=== PATIENT | female | born 1965 | race Caucasian/White ===

== ENCOUNTER → 2016-04-19 | Outpatient (CLI) | payer OTHER ==
[~2016-04-19] MED LIST: TEMA30CA PO; THYR60TA PO; VALS320T15 PO
[2016-04-19 13:32] LABS: Basophils # (auto) 0 uL; Basophils % (auto) 0.4 % (0.0-2.0); Eosinophils # (auto) 0.1 uL; Eosinophils % (auto) 2.2 % (0.0-7.0); Hemoglobin 13.9 g/dL (12.2-16.2); Lymphocytes # (auto) 1.7 uL; Lymphocytes % (auto) 25.4 % (10.0-50.0); Mean Corpuscular Hgb Conc. 32.3 g/dL (32.0-36.0); Mean Corpuscular Volume 93.1 fL (80.0-100.0); Mean Platelet Volume 8.9 fL (7.4-10.4); Monocytes # (auto) 0.6 uL; Monocytes % (auto) 8.7 % (0.0-12.0); Neutrophils # (auto) 4.2 uL; Neutrophils % (auto) 63.3 % (37.0-80.0); Platelet Count (auto) 260 10^3/uL (140-450); Red Cell Distribution Width 13.6 % (11.6-16.0); White Blood Cell 6.6 10^3/uL (4.4-10.8)
[2016-04-19 13:41] LABS: INR 1.1 (0.9-1.15); Partial Thromboplastin Time 29.1 sec (22.64-33.71); Prothrombin Time 11.3 sec (9.37-12.3)
[2016-04-19 14:16] LABS: Albumin 3.8 g/dL (3.4-5.0); BUN/Creatinine Ratio 25.5; Bilirubin, Total 0.2 mg/dL (0.2-1.0); Calcium 9.5 mg/dL (8.5-10.1); Potassium 4.2 mmol/L (3.5-5.1); Total Protein 7.9 g/dL (6.4-8.2)
[2016-04-19 14:30] LABS: Urine Bilirubin Negative (Negative); Urine Blood TRACE /uL (Negative); Urine Color Yellow (Yellow); Urine Glucose Normal (Normal); Urine Ketone Negative (Negative); Urine Nitrite Negative (Negative); Urine Urobilinogen Normal (Negative)
== END | disposition home or self-care (01) ==
LOC: LAB 13:12
PROVIDERS: ATTEND Obstetrics & Gynecology
DX: Z01.812 Encounter for preprocedural laboratory examination (principal)
CPT/HCPCS: 36415; 80053; 81003; 84702; 85025; 85610; 85730

== ENCOUNTER 2016-04-22 07:45 | Day surgery (SDC) | payer OTHER ==
[~2016-04-22] VITALS: Ht 162.6 cm; Wt 77.1 kg
[2016-04-22] MEDS ORDERED: ceFAZolin 1GM VL ONE (07:53)
[2016-04-22] MEDS ORDERED: CONJ ESTROGENS 0.625MG/GM VAG CRM 30GM PV ONE (07:53)
[2016-04-22] MEDS ORDERED: METHYLENE BLUE 1% 1 ML VIAL IV ONE (07:53)
[2016-04-22] MEDS ORDERED: GELATIN 1 SPONGE SIZE 100 TOP ONE (07:53)
[2016-04-22] MEDS ORDERED: LIDOCAINE 2% JELLY 11ml (GLYDO) ONE (07:53)
[2016-04-22] MEDS ORDERED: VASOPRESSIN 20 UNIT/ML ONE (07:54)
[2016-04-22] MEDS ORDERED: ceFAZolin 1GM/50ML D5W 50 ML IV ONE (08:22)
[2016-04-22] MEDS ORDERED: fentaNYL CITRATE 100 MCG/2 ML VL ONE (08:30)
[2016-04-22] MEDS ORDERED: MEPERIDINE HCL (50 MG/ML) 1 ML VIAL ONE (08:30)
[2016-04-22] MEDS ORDERED: MIDAZOLAM HCL 1MG/1ML-2 ML VIAL ONE (08:30)
[2016-04-22] MEDS ORDERED: LIDOCAINE W/ EPINEPHRINE 2% INJ 20ML VIAL ONE (08:51)
[2016-04-22] MEDS ORDERED: LIDOCAINE W/ EPINEPHRINE 1% 20ML VIAL ONE (08:51)
[2016-04-22] MEDS ORDERED: LIDOCAINE 1% HCL (LOCAL ANESTH.) INJ 20ML MDV ONE (08:51)
[2016-04-22] MEDS ORDERED: LIDOCAINE 2%HCL (LOCAL ANESTH.) INJ 20ML MDV ONE (08:51)
[2016-04-22] MEDS ORDERED: DEXAMETHASONE SOD PHOS 10MG/1ML VIAL INJ ONE (09:02)
[2016-04-22] MEDS ORDERED: NEOSTIGMINE 1 MG/ML INJ (10mg/10ML VIAL) ONE (09:06)
[2016-04-22] MEDS ORDERED: PROPOFOL 10 MG/ML 20 ML IV ONE (09:06)
[2016-04-22] MEDS ORDERED: KETOROLAC TROMETH 30 MG/ML 1ML VIAL ONE (09:08)
[2016-04-22] MEDS ORDERED: GLYCOPYRROLATE 0.2 MG/ML 1ML VIAL ONE (09:08)
[2016-04-22] MEDS ORDERED: MIDAZOLAM HCL 1MG/1ML-2 ML VIAL IV PRN (09:15)
[2016-04-22] MEDS ORDERED: ePHEDrine SULFATE 50 MG/ML AMP IV PRN (09:15)
[2016-04-22] MEDS ORDERED: MORPHINE SULF INJ 2 MG/ML SYRINGE 1ML IV PRN (09:15)
[2016-04-22] MEDS ORDERED: KETOROLAC TROMETH 30 MG/ML 1ML VIAL IV ONE (09:15)
[2016-04-22] MEDS ORDERED: LABETALOL HCL 5 MG/ML 4ML SYRINGE IV PRN (09:15)
[2016-04-22] MEDS ORDERED: ONDANSETRON HCL 4 MG/2 ML VIAL IV ONE (09:15)
[2016-04-22] MEDS: HYDROmorphone HCL 2 MG/ML VL IV PRN ×4 (09:44→10:17)
[2016-04-22 10:59] VITALS: BP 100/58
== END 2016-04-22 11:07 | disposition home or self-care (01) ==
LOC: SUR 07:45
PROVIDERS: ATTEND Obstetrics & Gynecology
DX: N95.2 Postmenopausal atrophic vaginitis (principal); N81.10 Cystocele, unspecified; E03.9 Hypothyroidism, unspecified; I10 Essential (primary) hypertension; Z90.710 Acquired absence of both cervix and uterus
CPT/HCPCS: 57106; 57240; 57288; 88302; C1771; J0690; J1100; J1170; J1885; J2175; J2250; J2704; J3010; J2001

== ENCOUNTER 2016-05-02 21:15 | Emergency (ER) | payer OTHER ==
[~2016-05-02] VITALS: Ht 162.6 cm; Wt 77.1 kg
[2016-05-02 22:11] LABS: Urine Bilirubin Negative (Negative); Urine Blood 1+ /uL (Negative); Urine Color Colorless (Yellow); Urine Glucose Normal (Normal); Urine Ketone Negative (Negative); Urine Nitrite Negative (Negative); Urine RBC 2 /hpf (0 - 4); Urine Squamous Epithelial Cell FEW /hpf (<5); Urine Urobilinogen Normal (Negative); Urine pH 5.5 (5.0-8.0)
[2016-05-02 22:31] LABS: Basophils # (auto) 0.1 uL; Basophils % (auto) 1.2 % (0.0-2.0); Eosinophils # (auto) 0.1 uL; Hematocrit 39.9 % (36.0-46.0); Hemoglobin 13.4 g/dL (12.2-16.2); Lymphocytes # (auto) 1.8 uL; Lymphocytes % (auto) 31.8 % (10.0-50.0); Mean Corpuscular Hemoglobin 30.8 pg (28.0-32.0); Mean Corpuscular Hgb Conc. 33.7 g/dL (32.0-36.0); Mean Corpuscular Volume 91.3 fL (80.0-100.0); Monocytes # (auto) 0.6 uL; Monocytes % (auto) 9.9 % (0.0-12.0); Neutrophils # (auto) 3.2 uL; Neutrophils % (auto) 55.1 % (37.0-80.0); Platelet Count (auto) 300 10^3/uL (140-450); Red Cell Distribution Width 13.6 % (11.6-16.0); White Blood Cell 5.8 10^3/uL (4.4-10.8)
[2016-05-02 22:56] LABS: Albumin 3.4 g/dL (3.4-5.0); Bilirubin, Total 0.1 mg/dL (0.2-1.0); Calcium 8.5 mg/dL (8.5-10.1); Potassium 3.6 mmol/L (3.5-5.1); Total Protein 7.5 g/dL (6.4-8.2)
[2016-05-03 00:05] VITALS: BP 113/65
== END 2016-05-03 00:23 | disposition home or self-care (01) ==
LOC: EDBD 21:15 → ER 21:20
DX: R33.9 Retention of urine, unspecified (principal); Z79.899 Other long term (current) drug therapy
CPT/HCPCS: 36415; 51702; 80053; 81001; 85025

== ENCOUNTER 2022-06-24 09:42 | Emergency (ER) | payer OTHER ==
[~2022-06-24] VITALS: Ht 162.6 cm; Wt 73.2 kg
[2022-06-24 10:47] LABS: Basophils # (auto) 0 10 ^3/uL (0-0.2); Basophils % (auto) 0.7 % (0.0-2.0); Eosinophils # (auto) 0.1 10 ^3/uL (0-0.8); Eosinophils % (auto) 2.2 % (0.0-7.0); Lymphocytes # (auto) 2.6 10 ^3/uL (0.4-5.4); Lymphocytes % (auto) 43.1 % (10.0-50.0); Mean Corpuscular Hemoglobin 30.8 pg (28.0-32.0); Mean Corpuscular Hgb Conc. 33.4 g/dL (32.0-36.0); Mean Corpuscular Volume 92.4 fL (80.0-100.0); Monocytes # (auto) 0.6 10 ^3/uL (0-1.3); Monocytes % (auto) 9.7 % (0.0-12.0); Neutrophils # (auto) 2.7 10 ^3/uL (1.6-8.6); Neutrophils % (auto) 44.3 % (37.0-80.0); Nucleated Red Blood Cells % 0.4 %; Red Blood Cells 4.54 10^6/uL (4.0-5.20); Red Cell Distribution Width 13.8 % (11.8-14.3)
[2022-06-24 11:11] LABS: Albumin 3.4 g/dL (3.4-5.0); Calcium 8.7 mg/dL (8.5-10.1); Potassium 3.9 mmol/L (3.5-5.1)
[2022-06-24 11:16] LABS: Urine Bacteria FEW /hpf (None Seen); Urine Blood 1+ /uL (Negative); Urine Specific Gravity 1.011 (1.001-1.035); Urine WBC 1 /hpf (0 - 5)
[2022-06-24 11:16] LABS: BUN/Creatinine Ratio 35.7 (10.0-20.0); Bilirubin, Total 0.4 mg/dL (0.2-1.0)
[2022-06-24 14:35] VITALS: BP 118/63
== END 2022-06-24 14:38 | disposition home or self-care (01) ==
LOC: ER 09:42
DX: R07.89 Other chest pain (principal); I10 Essential (primary) hypertension; R06.02 Shortness of breath; R51.9 Headache, unspecified
CPT/HCPCS: 36415; 70450; 71045; 80053; 81001; 83880; 84484; 85025; 93005

== ENCOUNTER 2023-07-15 18:54 | Emergency (ER) | payer OTHER ==
[~2023-07-15] VITALS: Ht 162.6 cm; Wt 70.0 kg
[~2023-07-15 18:54] MED LIST changes: +VALS320T PO; -VALS320T15 PO
[2023-07-15 19:24] VITALS: BP 105/70; PULSE 67; RESP 20; TEMP 98; O2SAT 97
[2023-07-15 19:49] LABS: Basophils # (auto) 0 10 ^3/uL (0-0.2); Basophils % (auto) 0.6 % (0.0-2.0); Eosinophils # (auto) 0.1 10 ^3/uL (0-0.8); Eosinophils % (auto) 1.8 % (0.0-7.0); Hematocrit 41.6 % (36.0-46.0); Lymphocytes # (auto) 1.8 10 ^3/uL (0.4-5.4); Lymphocytes % (auto) 26.6 % (10.0-50.0); Mean Corpuscular Hemoglobin 31.2 pg (28.0-32.0); Mean Corpuscular Hgb Conc. 33.7 g/dL (32.0-36.0); Mean Corpuscular Volume 92.7 fL (80.0-100.0); Monocytes # (auto) 0.5 10 ^3/uL (0-1.3); Monocytes % (auto) 7.5 % (0.0-12.0); Neutrophils # (auto) 4.3 10 ^3/uL (1.6-8.6); Neutrophils % (auto) 63.5 % (37.0-80.0); Red Blood Cells 4.49 10^6/uL (4.0-5.20); Red Cell Distribution Width 13.6 % (11.8-14.3); White Blood Cell 6.7 10^3/uL (4.4-10.8)
[2023-07-15 19:57] LABS: Chloride 108 mmol/L (98-107); Potassium 3.1 mmol/L (3.5-5.1); Sodium 139 mmol/L (136-145)
[2023-07-15 19:58] LABS: Anion Gap 7 (5-15); Calcium 10.1 mg/dL (8.5-10.1); Carbon Dioxide 24 mmol/L (20-30)
[2023-07-15 20:03] LABS: BUN/Creatinine Ratio 20.3 (10.0-20.0); Blood Urea Nitrogen 14 mg/dL (9-23); Glucose 153 mg/dL (74-106)
[2023-07-15 20:26] VITALS: PULSE 64
== END 2023-07-15 21:28 | disposition home or self-care (01) ==
LOC: EDBD 18:54 → EDSEX 18:54 → ER 18:54
DX: R55 Syncope and collapse (principal); R42 Dizziness and giddiness; I10 Essential (primary) hypertension; Z79.899 Other long term (current) drug therapy
CPT/HCPCS: 36415; 80048; 84484; 85025; 93005

== ENCOUNTER 2024-03-20 06:39 | Day surgery (SDC) | payer OTHER ==
[2024-03-16 11:22] LABS: Urine Bacteria None Seen /hpf (None Seen)
[2024-03-16 11:51] LABS: Basophils # (auto) 0 10 ^3/uL (0-0.2); Eosinophils # (auto) 0.2 10 ^3/uL (0-0.8); Eosinophils % (auto) 3.3 % (0.0-7.0); Hematocrit 43.6 % (36.0-46.0); Hemoglobin 14.7 g/dL (12.2-16.2); Lymphocytes # (auto) 1.8 10 ^3/uL (0.4-5.4); Lymphocytes % (auto) 39.9 % (10.0-50.0); Mean Corpuscular Hemoglobin 31.5 pg (28.0-32.0); Mean Corpuscular Hgb Conc. 33.8 g/dL (32.0-36.0); Mean Corpuscular Volume 93.1 fL (80.0-100.0); Monocytes # (auto) 0.5 10 ^3/uL (0-1.3); Monocytes % (auto) 11.1 % (0.0-12.0); Neutrophils # (auto) 2.1 10 ^3/uL (1.6-8.6); Neutrophils % (auto) 44.7 % (37.0-80.0); Platelet Count (auto) 213 10^3/uL (140-450); Red Blood Cells 4.68 10^6/uL (4.0-5.20); Red Cell Distribution Width 14.1 % (11.8-14.3); White Blood Cell 4.6 10^3/uL (4.4-10.8)
[2024-03-16 12:09] LABS: Urine Blood 1+ /uL (Negative); Urine Clarity Clear (Clear); Urine Color Colorless (Yellow); Urine Protein, UAD Negative (Negative); Urine Specific Gravity 1.007 (1.001-1.035); Urine Squamous Epithelial Cell None Seen /hpf (<5); Urine Urobilinogen Normal (Negative); Urine WBC 1 /hpf (0 - 5); Urine pH 6.5 (5.0-9.0)
[2024-03-16 12:10] LABS: INR 1.11 (0.9-1.15); Partial Thromboplastin Time 30.7 SEC (24.5-34.5); Prothrombin Time 11.7 sec (9.3-11.8)
[2024-03-16 12:16] LABS: Alanine Aminotransferase 16 U/L (7-40); Albumin 4.4 g/dL (3.2-4.8); Alkaline Phosphatase 90 U/L (46-116); Anion Gap 6 (5-15); BUN/Creatinine Ratio 20.9 (10.0-20.0); Blood Urea Nitrogen 14 mg/dL (9-23); Calcium 9.9 mg/dL (8.7-10.4); Carbon Dioxide 26 mmol/L (20-31); Glucose 95 mg/dL (74-106); Potassium 4.1 mmol/L (3.5-5.1); Sodium 139 mmol/L (136-145)
[2024-03-16 12:17] LABS: Bilirubin, Total 0.5 mg/dL (0.2-1.0); Total Protein 7.3 g/dL (5.7-8.2)
[2024-03-16 12:27] LABS: Aspartate Aminotransferase 13 U/L (13-40); Chloride 107 mmol/L (98-107)
[~2024-03-20] VITALS: Ht 162.6 cm; Wt 74.8 kg
[~2024-03-20 06:39] MED LIST changes: +ALPR0.25 PO; +ISOS1TAB29 PO; +LOSA-535 PO; +MAGN250T3 PO; -TEMA30CA PO; -THYR60TA PO; -VALS320T PO; +ZOLP10TA PO
[2024-03-20] MEDS ORDERED: EPINEPHrine HCL 1 MG/1 ML AMP ONE (07:21)
[2024-03-20] MEDS ORDERED: LIDOCAINE 2% JELLY 11ml (GLYDO) ONE (07:32)
[2024-03-20] MEDS ORDERED: ceFAZolin 2 GM/D5W100ml 100 ML IV ONE (08:23)
[2024-03-20] MEDS ORDERED: MIDAZOLAM HCL 2MG/2ML 2ml VIAL (1mg/ml) ONE (08:33)
[2024-03-20] MEDS ORDERED: fentaNYL CITRATE 100 MCG/2 ML VL ONE (08:33)
[2024-03-20] MEDS ORDERED: ROPIVACAINE 0.5% (5MG/ML) 20ML AMPULE IJ ONE ×2 (08:33→10:50)
[2024-03-20] MEDS ORDERED: MEPERIDINE HCL (25 MG/ML) 1ML VIAL ONE (08:34)
[2024-03-20] MEDS ORDERED: BUPIVACAINE HCL 50 ML ONE (08:34)
[2024-03-20] MEDS ORDERED: DexAMETHasone SOD PHOS 10MG/1ML VIAL INJ ONE (09:04)
[2024-03-20] MEDS: BUPIVACAINE HCL 50 ML ONE (09:19)
[2024-03-20] MEDS ORDERED: PROPOFOL 10 MG/ML 20 ML IV ONE (09:28)
[2024-03-20] MEDS ORDERED: ONDANSETRON HCL 4 MG/2 ML VIAL ONE (09:29)
[2024-03-20] MEDS ORDERED: ROCURONIUM 10MG/ML 10ML VIAL IV ONE (09:29)
[2024-03-20] MEDS ORDERED: fentaNYL CITRATE 100 MCG/2 ML VL IV PRN (09:30)
[2024-03-20] MEDS ORDERED: MORPHINE SULFATE 4 MG/ML SYR/VIAL IV PRN (09:30)
[2024-03-20] MEDS ORDERED: KETOROLAC TROMETH 30 MG/ML 1ML VIAL IV ONE (09:30)
[2024-03-20] MEDS ORDERED: MIDAZOLAM HCL 2MG/2ML 2ml VIAL (1mg/ml) IV PRN (09:30)
[2024-03-20] MEDS ORDERED: ePHEDrine SULFATE 50 MG/ML AMP IV PRN (09:30)
[2024-03-20] MEDS ORDERED: ONDANSETRON HCL 4 MG/2 ML VIAL IV ONE (09:30)
[2024-03-20] MEDS ORDERED: hydrALAZINE HCL 20 MG/ML VL IV PRN (09:30)
[2024-03-20] MEDS ORDERED: SUGAMMADEX 200mg/2ml Vial (100MG/ML) IV ONE ×2 (10:24→10:28)
[2024-03-20] MEDS ORDERED: LIDOCAINE W/ EPINEPHRINE 2% INJ 20ML VIAL ONE (10:51)
[2024-03-20 10:55] VITALS: PULSE 78; RESP 17; TEMP 96.1; O2SAT 100
--- NOTE | 2024-03-20 10:56 | DVHOP2 ---
Operative Report - 2 Report Details Date: 03/20/24 Preop Diagnosis: Right shoulder rotator cuff tear Postop Diagnosis: Right shoulder rotator cuff tear with subacromial impingement Surgeon: Rod Aleman MD [place] Specialist: Aldo Antunez, Physician [place] Specialist Anesthesiologist: Dr Chandra Anesthesia: General, Regional Implant: [employer] Healicoil knotless x2, Healicoil medial row anchor x1 Consent: The patient was informed of the risks and benefits of the procedure. These include but are not limited to complications of anesthesia, postoperative infection, incomplete relief of symptoms, recurrence of symptoms, damage to blood vessels, nerves and tendons, deep venous thrombosis, pulmonary embolism and possible need for repeat surgery in the future. Complications: None Estimated Blood Loss: Less than 10 mL Indications for Surgery: The patient is a 58-year-old female who presented to the clinic with a history of chronic shoulder pain. Clinical and radiological evaluation demonstrated progression of rotator cuff tear. She had previous surgery. Based on the incision, this was most likely an open surgery, possible rotator cuff tear repair. Nonoperative and operative management options were discussed with the family. Surgery in the form of shoulder arthroscopy with rotator cuff repair was discussed. benefits, risks and treatment alternatives were discussed. It was mentioned that biceps tenotomy versus tenodesis may be done but for her age and activity level, a tenotomy may be recommended. Specific complications of the surgery such as neurovascular injury, infection, arthrofibrosis, loss of limb or life were discussed. She decided to proceed with surgical option Name of Procedure Performed Right shoulder arthroscopy with rotator cuff repair and subacromial decompression Procedure Details Procedure Details: The patient was identified in the preoperative holding area and the surgical site was marked. The consent was verified. The patient was brought into the operating room and placed supine on the operating table. General anesthesia was administered. The beachchair attachment was applied to the operating table. The patient was now brought up into the beachchair position, approximately 60 degrees. The arm was prepped and draped in the usual sterile manner. The arm was placed in the attachment for the spyder, mechanical arm russell. The extremity was examined under anesthesia and was found to have good passive range of motion. A timeout was performed to confirm the identity of the patient, the nature of surgery, the site of surgery, the available of implants and x-rays and allergies to medications A standard posterior portal established. A 30 degree scope was inserted A standard anterior portal was established. A probe was inserted and the findings are as follows: 1. Torn the upper 3rd subscapularis tendon 2. Absent biceps tendon 3. Circumferential degenerative labral tear 4. Grade I-II chondromalacia 5. Significant synovitis 6. Full-thickness rotator cuff tear, medium-sized with retraction to cartilage I decided to repair the subscapularis. A knotless repair was used. A cannula was inserted in the anterior portal. A suture tape was inserted through the subscapularis. Another suture tape was also inserted for better fixation. Just in case this This was now inserted into the knotless anchor. A tap was used. The knotless anchor was inserted into the lesser tuberosity for excellent subscapularis fixation. The subacromial space was entered. Significant bursitis was noted. Decompression was carried out with bursectomy. The rotator cuff tear was visualized. This was a medium sized tear after debridement. The tissue quality was thin and was retracted up to the glenoid. Rotator interval was also released. The biceps tendon was absent. I decided to do a double row repair for this tear. A medial row Healicoil triple loaded bioabsorbable anchor was inserted anteriorly. 2 additional portals were made, the posterior lateral portal and the superior portal for this. A cannula was inserted into the lateral portal. A suture penetration and grasping device was used to grasp the tissue and passed the sutures. The sutures were sequentially passed from anterior to posterior direction. 6 passes were made. One of the suture pair was now tied for an excellent medial row footprint coverage. 4 of the sutures were now inserted into a knotless lateral row anchor. This was used as per manufacture's guidelines. A punch was used. Next, the anchor was used and inserted into the bone. Good fixation was noted. Subacromial decompression was completed with acromioplasty to remove approximately 5 mm of acromion as it was downsloping in nature. Two floating implants were noted, mainly sutures, possibly from the previous surgery. These were removed uneventfully. Some sutures were also noted into the acromion an aggressive acromioplasty was avoided as possibly she had open acromioplasty. Irrigation was given and the skin portals were closed with 2-0 nylon Sterile dressing was applied. Local anesthetic was given. Shoulder immobilizer was applied Disposition: Good, the patient was extubated and taken to recovery without any complications. The patient was examined in the recovery and had intact neurovascular exam Plan: To remain in the brace. Follow-up in 1 week. Condition Good Disposition Home ROD ALEMAN MD Mar 20, 2024 10:56
[2024-03-20] MEDS ORDERED: HYDR1TAB97 PO (11:04)
[2024-03-20] MEDS ORDERED: ASPI-498 OR (11:06)
[2024-03-20] MEDS ORDERED: CEPH500C PO (11:06)
[2024-03-20] MEDS: HYDROmorphone HCL 2 MG/ML VL/or syr IV PRN (11:37)
[2024-03-20] MEDS ORDERED: CYCLOBENZAPRINE HCL 10 MG TAB ONE (11:58)
[2024-03-20] MEDS: CYCLOBENZAPRINE HCL 10 MG TAB PO ONE (12:04)
[2024-03-20 12:10] VITALS: BP 111/65; PULSE 61; RESP 18; O2SAT 100
== END 2024-03-20 12:36 | disposition home or self-care (01) ==
LOC: SUR 06:39
PROVIDERS: ATTEND Orthopaedic Surgery Sports Medicine
DX: M75.121 Complete rotator cuff tear or rupture of right shoulder, not specified as traumatic (principal); M25.811 Other specified joint disorders, right shoulder; M65.811 Other synovitis and tenosynovitis, right shoulder; M94.211 Chondromalacia, right shoulder; S43.431A Superior glenoid labrum lesion of right shoulder, initial encounter; X58.XXXA Exposure to other specified factors, initial encounter; Y93.89 Activity, other specified; Y92.89 Other specified places as the place of occurrence of the external cause; Y99.8 Other external cause status; G89.29 Other chronic pain; I10 Essential (primary) hypertension; I25.10 Atherosclerotic heart disease of native coronary artery without angina pectoris; K21.9 Gastro-esophageal reflux disease without esophagitis; F41.9 Anxiety disorder, unspecified; Z79.899 Other long term (current) drug therapy; Z95.0 Presence of cardiac pacemaker; Z90.710 Acquired absence of both cervix and uterus; Z98.890 Other specified postprocedural states
CPT/HCPCS: 29826; 29827; 36415; 80053; 81001; 85025; 85610; 85730; C1713; J0171; J1100; J1171; J2175; J2250; J2405; J2704; J2795; J3010; J3490; A4565